=== PATIENT | male | born 1950 | race African-American/Black ===

== ENCOUNTER 2017-05-20 17:10 | Inpatient (IN) | payer MEDICAID, MEDICARE ==
[~2017-05-20] VITALS: Ht 177.8 cm; Wt 158.1 kg
[2017-05-20 18:41] LABS: BASOPHIL % 0.1 % (0-2); PLATELET COUNT 237 x10^3mcL (130-400)
[2017-05-20 18:45] LABS: RED CELL DISTRIBUTION WIDTH 20.2 % (11.5-14.5)
[2017-05-20 18:49] LABS: CALCIUM 8.2 mg/dL (8.5-10.1); CARBON DIOXIDE 22.1 mmol/L (21-32); CREATININE SERUM 2.5 mg/dL (0.7-1.3); POTASSIUM SERUM 4.7 mmol/L (3.5-5.1)
[2017-05-20 18:53] LABS: BILIRUBIN TOTAL 0.2 mg/dL (0.20-1.00); TOTAL PROTEIN, SERUM 8.2 g/dL (6.4-8.2)
[2017-05-20 18:54] LABS: ALBUMIN 2.5 g/dL (3.4-5.0)
[2017-05-20 20:21] LABS: RED BLOOD CELLS 2.59 M/mm3 (4.52-5.90)
[2017-05-20 20:24] VITALS: BP 139/56
[2017-05-20 20:28] LABS: MAGNESIUM 1.4 mg/dL (1.8-2.4); PHOSPHOROUS 4.1 mg/dL (2.5-4.9)
[2017-05-20 20:29] LABS: T3 TOTAL 0.84 ng/mL
[2017-05-20 20:30] LABS: CHOLESTEROL/HDL RATIO 2.1
[2017-05-20 20:36] LABS: FREE T4 1.1 ng/dL (0.76-1.46); FREE THYROXINE INDEX 2.1 ug/dL (1.4-4.5); T4(THYROXINE) 6.1 ug/dL (4.7-13.3)
[2017-05-20 20:37] LABS: IRON 47 ug/dL (65-170)
[2017-05-20 20:39] LABS: TOTAL IRON BINDING CAPACITY 202 ug/dL (250-450)
[2017-05-20] MEDS ORDERED: ADV250/50 (21:28)
[2017-05-20] MEDS ORDERED: XANAX2 MG PO (22:28)
[2017-05-20] MEDS ORDERED: GOOD SENSE ASPI81 M3 PO (22:38)
[2017-05-20] MEDS ORDERED: [UNRECOGNIZED DRUG - SUPPLY] (22:39)
[2017-05-20] MEDS ORDERED: ATORVASTATIN CA40 M1 PO (22:45)
[2017-05-20] MEDS ORDERED: BD ULTRA-FINE1 EAC1 (22:48)
[2017-05-20] MEDS ORDERED: BETIMOL5 M1 OU ×2 (22:49→23:16)
[2017-05-20] MEDS ORDERED: CARVEDILOL12.5 M1 PO (22:53)
[2017-05-20] MEDS ORDERED: LAXATIVE5 M1 PO (22:53)
[2017-05-20] MEDS ORDERED: GABAPENTIN TAB600 M1 PO (23:01)
[2017-05-20] MEDS ORDERED: COMINH INH (23:04)
[2017-05-20] MEDS ORDERED: LATANOPROST2.5 ML OU (23:06)
[2017-05-20] MEDS ORDERED: LATUDA40 M1 PO (23:07)
[2017-05-20] MEDS ORDERED: LEVEMIR FLEX100 U/M1 INJ (23:08)
[2017-05-20] MEDS ORDERED: NITROGLYCERIN0.4 MG SL (23:10)
[2017-05-20] MEDS ORDERED: NOVOLOG100 U/ML SC (23:11)
[2017-05-20] MEDS ORDERED: [UNRECOGNIZED DRUG - OTHER] PO (23:12)
[2017-05-20] MEDS ORDERED: ZOLOFT50 MG PO (23:13)
[2017-05-20] MEDS ORDERED: SPIRIVA18 MC1 INH (23:14)
[2017-05-20] MEDS ORDERED: TAMSULOSIN HYD0.4 M1 PO (23:15)
[2017-05-20] MEDS ORDERED: TRAVATAN Z5 ML OU (23:17)
[2017-05-20] MEDS ORDERED: VITAMIN-D1000 IU PO (23:18)
[2017-05-21 00:46] VITALS: BP 139/56
[2017-05-21 05:44] VITALS: BP 109/67
[2017-05-21 07:03] LABS: BASOPHIL % 0.4 % (0-2); PLATELET COUNT 216 x10^3mcL (130-400)
[2017-05-21 07:21] LABS: CARBON DIOXIDE 22.3 mmol/L (21-32); CREATININE SERUM 2.4 mg/dL (0.7-1.3); MAGNESIUM 1.5 mg/dL (1.8-2.4); PHOSPHOROUS 5.4 mg/dL (2.5-4.9); POTASSIUM SERUM 5.1 mmol/L (3.5-5.1)
[2017-05-21 08:03] LABS: RED CELL DISTRIBUTION WIDTH 19.9 % (11.5-14.5)
[2017-05-21 09:40] VITALS: BP 139/65
[2017-05-21 09:48] LABS: rbc morphology (normal/abnorm) ABNORMAL (NORMAL)
[2017-05-21 09:49] LABS: schistocyte (helmet cell) 2+
[2017-05-21 18:46] VITALS: BP 106/70
[2017-05-21 21:53] VITALS: BP 145/70
[2017-05-22] VITALS (7 sets, daily range): BP systolic 111–151; BP diastolic 12–78
[2017-05-22 06:47] LABS: BASOPHIL % 0.4 % (0-2); PLATELET COUNT 240 x10^3mcL (130-400)
[2017-05-22 06:50] LABS: RED CELL DISTRIBUTION WIDTH 19.9 % (11.5-14.5)
[2017-05-22 06:52] LABS: rbc morphology (normal/abnorm) ABNORMAL (NORMAL)
[2017-05-22 06:53] LABS: schistocyte (helmet cell) 1+
[2017-05-22 06:58] LABS: CALCIUM 8.1 mg/dL (8.5-10.1); CARBON DIOXIDE 25.6 mmol/L (21-32); CREATININE SERUM 2.5 mg/dL (0.7-1.3); MAGNESIUM 1.7 mg/dL (1.8-2.4); PHOSPHOROUS 6.1 mg/dL (2.5-4.9)
[2017-05-22 07:07] LABS: POTASSIUM SERUM 5.6 mmol/L (3.5-5.1)
[2017-05-22 20:59] LABS: BASOPHIL % 0.2 % (0-2); PLATELET COUNT 202 x10^3mcL (130-400)
[2017-05-22 21:00] LABS: RED CELL DISTRIBUTION WIDTH 19.5 % (11.5-14.5)
[2017-05-22 21:07] LABS: CALCIUM 8.6 mg/dL (8.5-10.1); CARBON DIOXIDE 24.6 mmol/L (21-32); CREATININE SERUM 2.7 mg/dL (0.7-1.3); POTASSIUM SERUM 5.3 mmol/L (3.5-5.1)
[2017-05-23 06:27] VITALS: BP 122/64
[2017-05-23 06:48] LABS: PLATELET COUNT 236 x10^3mcL (130-400)
[2017-05-23 06:49] LABS: BASOPHIL % 0 % (0-2); RED CELL DISTRIBUTION WIDTH 19.1 % (11.5-14.5)
[2017-05-23 06:53] LABS: rbc morphology (normal/abnorm) ABNORMAL (NORMAL)
[2017-05-23 07:50] VITALS: BP 150/70
[2017-05-23 08:02] LABS: CALCIUM 8.5 mg/dL (8.5-10.1); CARBON DIOXIDE 26.5 mmol/L (21-32); CREATININE SERUM 2.7 mg/dL (0.7-1.3); MAGNESIUM 1.7 mg/dL (1.8-2.4); PHOSPHOROUS 6.6 mg/dL (2.5-4.9); POTASSIUM SERUM 5.3 mmol/L (3.5-5.1)
[2017-05-23 13:20] VITALS: BP 162/78
[2017-05-23 16:10] VITALS: BP 154/75
[2017-05-23 17:09] LABS: PLATELET COUNT 243 x10^3mcL (130-400)
[2017-05-23 17:23] LABS: BASOPHIL % 0 % (0-2); RED CELL DISTRIBUTION WIDTH 19.4 % (11.5-14.5)
[2017-05-23 20:27] VITALS: BP 162/71
[2017-05-24 03:00] LABS: UA SPECIFIC GRAVITY 1.015 (1.005-1.035); microscopic required? YES; urine erythrocyte 3+ (NEGATIVE)
[2017-05-24 05:44] VITALS: BP 155/70
[2017-05-24 07:45] LABS: BASOPHIL % 0.2 % (0-2); PLATELET COUNT 254 x10^3mcL (130-400)
[2017-05-24 07:48] LABS: CALCIUM 8.6 mg/dL (8.5-10.1); CARBON DIOXIDE 25.1 mmol/L (21-32); CREATININE SERUM 3.2 mg/dL (0.7-1.3); MAGNESIUM 1.7 mg/dL (1.8-2.4); PHOSPHOROUS 5.8 mg/dL (2.5-4.9); POTASSIUM SERUM 4.7 mmol/L (3.5-5.1)
[2017-05-24 07:52] LABS: RED CELL DISTRIBUTION WIDTH 19.5 % (11.5-14.5)
[2017-05-24 09:25] VITALS: BP 121/64
[2017-05-24 13:17] VITALS: Ht 177.8 cm; Wt 158.1 kg
[2017-05-24 13:53] VITALS: BP 147/69
[2017-05-24 17:22] VITALS: BP 130/69
[2017-05-24 20:54] VITALS: BP 143/62
[2017-05-25 06:07] VITALS: BP 109/43; BP 96/57
[2017-05-25 07:35] LABS: BASOPHIL % 0.4 % (0-2); PLATELET COUNT 242 x10^3mcL (130-400)
[2017-05-25 07:38] LABS: CALCIUM 8.8 mg/dL (8.5-10.1); CARBON DIOXIDE 25.1 mmol/L (21-32); CREATININE SERUM 3.4 mg/dL (0.7-1.3); MAGNESIUM 1.9 mg/dL (1.8-2.4); PHOSPHOROUS 6.2 mg/dL (2.5-4.9); POTASSIUM SERUM 5.3 mmol/L (3.5-5.1)
[2017-05-25 08:03] VITALS: BP 142/79
[2017-05-25 17:12] VITALS: BP 112/78
[2017-05-25 21:03] VITALS: BP 148/70
[2017-05-25 22:36] LABS: microscopic required? YES; urine erythrocyte 3+ (NEGATIVE)
[2017-05-26 06:32] VITALS: BP 156/73
[2017-05-26 07:15] LABS: BASOPHIL % 0.2 % (0-2); PLATELET COUNT 227 x10^3mcL (130-400); RED CELL DISTRIBUTION WIDTH 19.5 % (11.5-14.5)
[2017-05-26 07:38] LABS: CALCIUM 9.2 mg/dL (8.5-10.1); CARBON DIOXIDE 26.5 mmol/L (21-32); CREATININE SERUM 3.4 mg/dL (0.7-1.3); MAGNESIUM 1.9 mg/dL (1.8-2.4); POTASSIUM SERUM 5.4 mmol/L (3.5-5.1)
[2017-05-26 09:39] VITALS: BP 139/60
[2017-05-26 17:13] VITALS: BP 151/62
[2017-05-26 21:25] VITALS: BP 136/61
[2017-05-27 04:36] VITALS: BP 136/61
[2017-05-27 06:14] VITALS: BP 158/55
[2017-05-27 06:38] LABS: PLATELET COUNT 222 x10^3mcL (130-400)
[2017-05-27 07:04] LABS: BASOPHIL % 0 % (0-2); RED CELL DISTRIBUTION WIDTH 19.5 % (11.5-14.5)
[2017-05-27 08:12] LABS: CALCIUM 9.8 mg/dL (8.5-10.1); CARBON DIOXIDE 23.1 mmol/L (21-32); CREATININE SERUM 3.2 mg/dL (0.7-1.3); MAGNESIUM 1.7 mg/dL (1.8-2.4)
[2017-05-27 08:19] LABS: POTASSIUM SERUM 5.7 mmol/L (3.5-5.1)
[2017-05-27 09:50] VITALS: BP 163/70
[2017-05-27 13:27] VITALS: BP 154/72
[2017-05-27 18:09] VITALS: BP 142/75
[2017-05-27 19:49] LABS: CALCIUM 9.1 mg/dL (8.5-10.1); CARBON DIOXIDE 27.9 mmol/L (21-32); CREATININE SERUM 3.3 mg/dL (0.7-1.3)
[2017-05-27 19:51] LABS: POTASSIUM SERUM 6.1 mmol/L (3.5-5.1)
[2017-05-27 21:13] VITALS: BP 150/66
[2017-05-28 05:07] VITALS: BP 135/63
[2017-05-28 06:51] LABS: BASOPHIL % 0.3 % (0-2); PLATELET COUNT 201 x10^3mcL (130-400)
[2017-05-28 07:12] LABS: CALCIUM 9.1 mg/dL (8.5-10.1); CARBON DIOXIDE 26.9 mmol/L (21-32); CREATININE SERUM 2.9 mg/dL (0.7-1.3); MAGNESIUM 1.5 mg/dL (1.8-2.4); PHOSPHOROUS 4.6 mg/dL (2.5-4.9); POTASSIUM SERUM 5.3 mmol/L (3.5-5.1)
[2017-05-28 07:31] LABS: RED CELL DISTRIBUTION WIDTH 19.5 % (11.5-14.5)
[2017-05-28 09:00] VITALS: BP 169/53
[2017-05-28 11:30] VITALS: BP 150/60
[2017-05-28 17:14] VITALS: BP 146/62
[2017-05-28 22:07] VITALS: BP 156/76
[2017-05-29 06:04] VITALS: BP 105/88
[2017-05-29 06:46] LABS: BASOPHIL % 0.1 % (0-2); PLATELET COUNT 202 x10^3mcL (130-400)
[2017-05-29 06:48] LABS: RED CELL DISTRIBUTION WIDTH 19.3 % (11.5-14.5)
[2017-05-29 07:05] LABS: CALCIUM 9.2 mg/dL (8.5-10.1); CARBON DIOXIDE 26.3 mmol/L (21-32); CREATININE SERUM 2.9 mg/dL (0.7-1.3); MAGNESIUM 1.7 mg/dL (1.8-2.4); PHOSPHOROUS 4.4 mg/dL (2.5-4.9); POTASSIUM SERUM 4.8 mmol/L (3.5-5.1)
[2017-05-29 09:00] VITALS: BP 147/58
[2017-05-29] MEDS ORDERED: CORE25 PO (10:52)
[2017-05-29] MEDS ORDERED: QUETIAPINE FUMA25 M1 PO (10:53)
[2017-05-29] MEDS ORDERED: ABILIFY5 M1 PO (10:53)
[2017-05-29] MEDS ORDERED: NOR10T PO (10:57)
[2017-05-29] MEDS ORDERED: XAN5 PO (10:57)
[2017-05-29] MEDS ORDERED: PHOS PO (10:58)
[2017-05-29] MEDS ORDERED: DORZOLAMIDE HYD10 M2 OU (10:58)
[2017-05-29] MEDS ORDERED: XALATAN2.5 ML OU (10:59)
[2017-05-29] MEDS ORDERED: TRAVATAN Z5 ML OU (10:59)
[2017-05-29] MEDS ORDERED: LAC PO (11:00)
[2017-05-29] MEDS ORDERED: CLINDAMYCIN HC300 MG PO (11:02)
[2017-05-29 11:03] VITALS: BP 105/88
[2017-05-29 11:06] VITALS: BP 105/88
[2017-05-29] MEDS ORDERED: LEVAQUIN750 MG PO (11:06)
[2017-05-29] MEDS ORDERED: DIF100 PO (11:17)
[2017-05-29] MEDS ORDERED: GOOD SENSE ASPI81 M3 PO (12:31)
[2017-05-29] MEDS ORDERED: LAXATIVE5 M1 PO (12:31)
[2017-05-29 13:27] VITALS: BP 150/72
== END 2017-05-29 13:35 | DRG 469 ==
LOC: ED 17:10 → DU 18:38 → MU 18:38 → DU 19:40 → MU 05-24 17:32
PROVIDERS: Emergency Medicine Emergency Medical Services; Family Medicine; Student in an Organized Health Care Education/Training Program
PROC: 5A09357 Assistance with Respiratory Ventilation, Less than 24 Consecutive Hours, Continuous Positive Airway Pressure (ICD-10-PCS; principal; 2017-05-21)
PROC: 30233N1 Transfusion of Nonautologous Red Blood Cells into Peripheral Vein, Percutaneous Approach (ICD-10-PCS; 2017-05-21)
PROC: 5A09357 Assistance with Respiratory Ventilation, Less than 24 Consecutive Hours, Continuous Positive Airway Pressure (ICD-10-PCS; 2017-05-21)
DX: N17.0 Acute kidney failure with tubular necrosis (principal); E43 Unspecified severe protein-calorie malnutrition; I50.43 Acute on chronic combined systolic (congestive) and diastolic (congestive) heart failure; I82.411 Acute embolism and thrombosis of right femoral vein; L03.115 Cellulitis of right lower limb; I69.954 Hemiplegia and hemiparesis following unspecified cerebrovascular disease affecting left non-dominant side; E11.21 Type 2 diabetes mellitus with diabetic nephropathy; E11.65 Type 2 diabetes mellitus with hyperglycemia; I08.1 Rheumatic disorders of both mitral and tricuspid valves; N18.4 Chronic kidney disease, stage 4 (severe); F20.9 Schizophrenia, unspecified; I13.0 Hypertensive heart and chronic kidney disease with heart failure and stage 1 through stage 4 chronic kidney disease, or unspecified chronic kidney disease; M19.90 Unspecified osteoarthritis, unspecified site; E11.22 Type 2 diabetes mellitus with diabetic chronic kidney disease; N40.1 Benign prostatic hyperplasia with lower urinary tract symptoms; F32.9 Major depressive disorder, single episode, unspecified; E78.00 Pure hypercholesterolemia, unspecified; G72.9 Myopathy, unspecified; E83.42 Hypomagnesemia; D64.9 Anemia, unspecified; E66.2 Morbid (severe) obesity with alveolar hypoventilation; N39.0 Urinary tract infection, site not specified; E87.5 Hyperkalemia; E83.39 Other disorders of phosphorus metabolism; N13.9 Obstructive and reflux uropathy, unspecified; E83.51 Hypocalcemia; B96.20 Unspecified Escherichia coli [E. coli] as the cause of diseases classified elsewhere; H40.9 Unspecified glaucoma; F41.9 Anxiety disorder, unspecified; Z79.4 Long term (current) use of insulin; Z88.6 Allergy status to analgesic agent; Z85.51 Personal history of malignant neoplasm of bladder; Z59.0 Homelessness; Z91.14 Patient's other noncompliance with medication regimen; Z68.43 Body mass index [BMI] 50.0-59.9, adult; Z91.19 Patient's noncompliance with other medical treatment and regimen
CPT/HCPCS: 82962; 83880; 84439; 85378; 97110-GP; 97116-GP; 97530-GP; A9540; J0610; J1644; J1940; J1956; J2060; J2916; J3475; J3490; J7030; J7050; J7620; P9016; Q0092; Q0163